=== PATIENT | male | born 1965 | race Caucasian/White ===

== ENCOUNTER 2023-09-11 19:10 | Emergency (ER) | payer SELFPAY ==
--- NOTE | 2023-09-11 19:39 | ED.CPR ---
HPI - CPR General Chief Complaint: Cardiac Arrest/CPR Stated Complaint: vfib arrest Time Seen by Provider: 09/11/23 19:23 History of Present Illness HPI narrative: patient is a 58-year-old male who presented to the emergency department in cardiac arrest. states that since Thursday he has been feeling unwell and having multiple episodes of vomiting. this morning she noted an episode of unresponsiveness and he returned to baseline fairly rapidly. At that time tried to get him to come into the emergency department and he refused. She states that about 20 minutes prior to presentation to the emergency department she heard a thud and she found him down unresponsive in the kitchen. She called his parents and then on their arrival EMS was called. Downtime prior to EMS arrival was approximately 15 minutes. Patient was in v.fib on EMS arrival. 3 shocks were administered, 3 doses of epi were given, amiodarone 300 mg bolus given en route. Blood glucose normal. Review of Systems Review of Systems: ROS unobtainable: Yes unobtainable due to endotracheal tube Exam Narrative: GENERAL: unresponsive HEAD: Normocephalic, atraumatic. EYES: pupils 5mm, fixed, dilated ENT: Nares clear. ETT in place. NECK: Supple. CHEST: bagging respirations HEART: pulseless, palpable pulse with CPR ABDOMEN: Soft, nondistended. EXTREMITIES: Atraumatic SKIN: Cool, dry NEURO: unresponsive. Course Course Emergency Course: Patient seen evaluated on EMS arrival. Andre CPR is in process. Patient was intubated in the field. Patient was due for epi and 1st epi dose given on arrival. On persistent pulse checks patient is in V-tach versus VFib. ACLS protocol followed. Patient is mistreated shocks, given epinephrine. They are to pulse checks were patient was in PE AA however on subsequent pulse check he would be back in ventricular tachycardia. He was given bicarb, calcium, D50. Esmolol bolus and drip initiated for persistent V-tach. On bedside ultrasound he was in cardiac standstill and after approximately 30 minutes of resuscitation here in the emergency department time of was called by myself. Family was present for the majority of resuscitation. TOD: 1936 Discharge Plan Discharge Clinical Impression: Cardiac arrest, Ventricular tachycardia Patient Disposition: Condition: Follow-up/Referrals: UNKNOWN,DOCTOR [Primary Care Provider] -
--- NOTE | 2023-09-11 19:56 | PC.NURSE ---
Addendum entered by Cady Barker RN 09/11/23 20:08: 1935-Esmolol gtt initiated Original Note: 1906-Pt arrival, on Andre, EPI given 1908-Bicarb amp given 1909-Pulse check, VF, Defib, resume Andre, Amiodarone 150mg, FSBS 75 1910-EPI 1911-Dextrose amp 1912-Pulse check, PEA, resume Andre 1913-EPI 1915-Pulse check, PEA, resume Andre 1916-EPI 1917-20g RAC established 1918-Pulse check, VF, Defib, resume Andre, Calcium amp 1919-EPI 1921-Pulse check, VT, Defib, resume Andre 1922-EPI 192-Pulse check, PEA, resume Andre 1925-EPI 1927-Pulse check, VF, Defib, resume Andre, US-cardiac standstill 1928-EPI 1930-Pulse check, VF, Defib, resume Andre 1931-EPI 1932-35mg Esmolol bolus 1933-Pulse check, PEA, resume Anrde 1934-EPI 1936-Pulse check, VF, US-cardiac standstill TOD-1936
--- NOTE | 2023-09-12 17:01 | PC.NURSE ---
Call from [facility]. PT no longer in timeframe for donation. Able to be released to home when that is determined.
== END 2023-09-11 21:30 | disposition expired ==
PROVIDERS: Emergency Provider Student in an Organized Health Care Education/Training Program
DX: I46.9 Cardiac arrest, cause unspecified (principal); I47.20 Ventricular tachycardia, unspecified
CPT/HCPCS: 92950; 96374; 99285; J0171; J0282